=== PATIENT | male | born 1955 | race Caucasian/White ===

== ENCOUNTER 2019-10-23 07:10 | Emergency (ER) | payer OTHER ==
[2019-10-23 07:21] VITALS: BP 135/92; PULSE 90; TEMP 97.7; BMI 28.8
[2019-10-23] MEDS ORDERED: ALBUTEROL SO4 2.5/IPRATROPIUM 0.5 INH SOL 3 ML VIAL.NEB. NEB ONE ×4 (07:58→08:46)
--- NOTE | 2019-10-23 08:56 | PDOC ---
History of Present Illness - General Chief Complaint: Cold Symptoms Stated Complaint: ASTHMA Time Seen by Provider: 10/23/19 07:47 History Source: Patient Exam Limitations: No Limitations - History of Present Illness Initial Comments: 10/23/19 08:52 64-year-old male with history of asthma, hypertension, hyperlipidemia complains of dry cough x2 days with sore throat and earache. Denies body aches, headache , shortness of breath, nausea, vomiting, diarrhea, fever, chills, chest pain, abdominal pain, sick contacts, recent travel, rash, urinary symptoms or any other complaints. Took DayQuil yesterday without relief. Quit tobacco smoking 35 years ago. ROS: GENERAL/CONSTITUTIONAL: No fever, chills, weakness, dizziness HEAD, EYES, EARS, NOSE AND THROAT: Positive sore throat, earache, no changes in vision CARDIOVASCULAR: No chest pain RESPIRATORY: Positive cough, no shortness of breath GASTROINTESTINAL: No pain, nausea, vomiting, diarrhea or constipation GENITOURINARY: No dysuria MUSCULOSKELETAL: No neck or back pain SKIN: No rash NEUROLOGIC: No headache, vertigo, loss of consciousness, or loss of sensation PE: GENERAL: well-appearing, NAD, actively coughing HEAD: NCAT EYES: Pupils equal, round and reactive to light, sclera anicteric, conjunctiva clear ENT: Normal ear canals bilaterally, pharynx: no erythema, no exudate, uvula midline NECK: supple CHEST: nontender RESP: Minimal wheezing throughout lung pantoja CARDIO: rrr, no m/g/r ABD: +BS, soft, nontender, non distended BACK: no midline spinal ttp, no CVAT EXTREMITIES: Normal range of motion, no edema NEUROLOGICAL: Normal speech, normal gait SKIN: Warm, Dry Past History - Past Medical History Allergies/Adverse Reactions: Allergies Allergy/AdvReac Type Severity Reaction Status Date / Time No Known Allergies Allergy Verified 10/23/19 07:20 Home Medications: Ambulatory Orders Albuterol Sulfate Inhaler - [Ventolin HFA Inhaler -] 1 - 2 inh PO Q4H #1 inhaler 10/23/19 Atorvastatin Calcium 20 mg PO HS 10/23/19 Azithromycin 500 mg PO ONCE 5 Days #5 tablet 10/23/19 Metoprolol Succinate 25 mg PO DAILY 10/23/19 COPD: No HTN: Yes Hypercholesterolemia: Yes - Surgical History Cholecystectomy: Yes - Psycho Social/Smoking Cessation Hx Smoking History: Never smoked Information on smoking cessation initiated: No Hx Alcohol Use: No Drug/Substance Use Hx: No *Physical Exam - Vital Signs Last Vital Signs Temp Pulse Resp BP Pulse Ox 97.7 F 90 19 135/92 95 10/23/19 07:17 10/23/19 07:17 10/23/19 07:17 10/23/19 07:17 10/23/19 07:17 ED Treatment Course - RADIOLOGY Radiology Studies Ordered: Category Date Time Status CHEST PA & LAT [RAD] Stat Radiology 10/23/19 07:56 Completed - Medications Given in the ED: ED Medications Discontinued Medications Generic Name Dose Route Start Last Admin Trade Name Freq PRN Reason Stop Dose Admin Albuterol/Ipratropium 1 amp 10/23/19 07:58 10/23/19 08:04 Duoneb - NEB 10/23/19 07:59 1 amp ONCE ONE Administration Albuterol/Ipratropium 1 amp 10/23/19 08:40 10/23/19 08:47 Duoneb - NEB 10/23/19 08:41 1 amp ONCE ONE Administration Medical Decision Making - Medical Decision Making 10/23/19 08:55 64-year-old male with history of asthma, hypertension, hyperlipidemia complains of dry cough, sore throat and earache for 2 days. On exam minimal wheezing appreciated throughout lung pantoja DuoNeb treatments x2 Chest x-ray Reassess 10/23/19 09:23 Chest x-ray read by radiologist: minimal atelectasis to left lower base otherwise no infiltrate noted Feels better after neb treatments Will treat with azithromycin for 5 days Will prescribe albuterol MDI Advised to follow-up with PMD this week Return precautions discussed Discharge - Discharge Information Problems reviewed: Yes Clinical Impression/Diagnosis: Cough Condition: Stable Disposition: HOME - Admission No - Follow up/Referral - Patient Discharge Instructions Additional Instructions: Take azithromycin 500 mg 1 tablet daily for 5 days Use albuterol MDI 1 to 2 puffs every 4 hours as needed Follow-up with your doctor within 1 week Return to ED if chest pain, shortness of breath, worsening cough, abdominal pain or any other symptom - Post Discharge Activity
== END 2019-10-23 09:33 | disposition home or self-care (01) ==
LOC: JER 07:10
PROC: 3E0F7GC Introduction of Other Therapeutic Substance into Respiratory Tract, Via Natural or Artificial Opening (ICD-10-PCS; principal; 2019-10-23)
PROC: 3E0F7GC Introduction of Other Therapeutic Substance into Respiratory Tract, Via Natural or Artificial Opening (ICD-10-PCS; 2019-10-23)
DX: R05 Cough (principal)
CPT/HCPCS: 71046-TC-FY; 99281-25